=== PATIENT | male | born 1955 | race Caucasian/White ===

== ENCOUNTER → 2016-10-16 | Outpatient (REF) | payer OTHER ==
[2016-10-16 14:45] LABS: RBC, URINE NONE SEEN /hpf (0-3)
[2016-10-16 14:46] LABS: BACTERIA, URINE SMALL AMOUNT; HYALINE CAST, URINE NONE SEEN /lpf (0-1); MICROSCOPIC EXAM PERFORMED; SQUAMOUS EPITHELIAL CELL URINE NONE SEEN /hpf (SMALL AMT); URIC ACID CRYSTALS, URINE LARGE AMOUNT /hpf
== END ==
LOC: M LAB REF 13:02
PROVIDERS: ATTEND Internal Medicine Nephrology
DX: R31.9 Hematuria, unspecified (principal)

== ENCOUNTER → 2017-05-15 | Outpatient (REF) | payer OTHER, SELFPAY ==
[2017-05-15 19:41] LABS: SQUAMOUS EPITHELIAL CELL URINE SMALL AMOUNT /hpf (SMALL AMT)
[2017-05-15 19:42] LABS: RBC, URINE 0-1 /hpf (0-3)
[2017-05-15 19:43] LABS: BACTERIA, URINE NONE SEEN; HYALINE CAST, URINE NONE SEEN /lpf (0-1); MICROSCOPIC EXAM PERFORMED
== END ==
LOC: M LAB REF 17:05
PROVIDERS: ATTEND Internal Medicine Nephrology
DX: R82.99 Other abnormal findings in urine (principal)

== ENCOUNTER → 2017-06-09 | Outpatient (CLI) | payer OTHER, SELFPAY ==
--- NOTE | 2017-06-09 13:49 | REP ---
URINARY TRACT SONOGRAPHY: HISTORY: Chronic kidney disease stage III. Cyst of kidney. COMPARISON STUDY: 08/04/2016. Comparison CT study 05/09/2016. SONOGRAPHIC FINDINGS: Scanning of the level of the urinary bladder shows smooth bladder hodgson. Emptying ureteral jets are confirmed on color Doppler interrogation of the bladder lumen. Renal cortical echogenicity pattern is normal, and renal contours are smooth on both sides. There is no evidence of hydronephrosis on either side. The right kidney measures 10.3 x 5.7 x 5.1 cm. Left renal dimensions are 10.0 x 5.3 x 5.8 cm. There are two parapelvic cysts again seen in the right kidney. These measure 2.9 x 2.3 x 2.4 cm and 3.3 x 2.6 x 2.5 cm. These are unchanged. IMPRESSION: 1. No hydronephrosis seen. 2. Two parapelvic cysts right kidney as before. Normal renal cortical echogenicity. Signed by Rick Bell MD 06/09/2017 04:33 P
== END ==
LOC: M RAD 07:06
PROVIDERS: ATTEND Internal Medicine Nephrology
DX: N18.3 Chronic kidney disease, stage 3 (moderate) (principal); N28.1 Cyst of kidney, acquired

== ENCOUNTER → 2018-07-02 | Outpatient (REF) | payer OTHER, SELFPAY ==
[2018-07-02 18:55] LABS: BACTERIA, URINE AUTO NEGATIVE (NEGATIVE); RBC, URINE AUTO 0 /HPF (0-3); SQUAMOUS EPITHELIAL CELL UR AU 0 /HPF (0-6); WBC, URINE AUTO 1 /HPF (0-3)
== END ==
LOC: M LAB REF 17:04
DX: N18.3 Chronic kidney disease, stage 3 (moderate) (principal); R82.99 Other abnormal findings in urine; R31.9 Hematuria, unspecified
CPT/HCPCS: 81015

== ENCOUNTER → 2019-03-14 | Outpatient (REF) | payer OTHER ==
[~2019-03-14] MED LIST: IBUP-1114 PO; NAPR-837 PO
== END ==
LOC: M LAB LCGH 13:39
PROVIDERS: ATTEND Surgery
DX: Z80.0 Family history of malignant neoplasm of digestive organs (principal)

== ENCOUNTER 2019-03-17 07:36 | Emergency (ER) | payer OTHER ==
[~2019-03-17] VITALS: Ht 170.2 cm; Wt 75.0 kg
[2019-03-17 07:37] VITALS: BP 123/71
[2019-03-17] MEDS ORDERED: IBUP-1114 PO (07:43)
[2019-03-17] MEDS ORDERED: NAPR-837 PO (07:59)
[2019-03-17] MEDS ORDERED: NAPROXEN 250 MG TAB PO ONE (08:00)
--- NOTE | 2019-03-17 08:18 | REP ---
RIGHT KNEE, FIVE VIEWS: There is no evidence of an acute fracture, dislocation or intrinsic bone disease. IMPRESSION: No fracture or dislocation. Electronically Signed by Delfin Larios MD 03/17/2019 04:29 P
== END 2019-03-17 08:29 | disposition home or self-care (01) ==
LOC: M ED 07:36
DX: S89.91XA Unspecified injury of right lower leg, initial encounter (principal); W17.89XA Other fall from one level to another, initial encounter; Y92.89 Other specified places as the place of occurrence of the external cause